=== PATIENT | female | born 1970 | race Caucasian/White ===

== ENCOUNTER → 2023-11-09 12:44 | Outpatient (REF) | payer OTHER, SELFPAY ==
[2023-11-09 14:28] LABS: Urine Albumin Negative (Neg - Trace); Urine Bilirubin Negative (Negative); Urine Character Clear (Clear); Urine Color Yellow; Urine Glucose Negative (Negative); Urine Ketone Negative (Negative); Urine Leukocyte 2+ (Negative); Urine Nitrite Negative (Negative); Urine Occult Blood Trace (Negative); Urine Urobilinogen Negative (Neg - 1+)
[2023-11-09 14:42] LABS: Urine Squamous Cell >30 /LPF (Few)
[2023-11-09 14:43] LABS: Urine Bacteria Few (Negative); Urine Red Blood Cell 0-2 /HPF (0-2); Urine White Cell 0-2 /HPF (0-5)
== END ==
LOC: CLAB 12:44
PROVIDERS: ATTENDING PHYSICIAN Urology
DX: N39.0 Urinary tract infection, site not specified (principal)
CPT/HCPCS: 81003; 81015; 87077; 87086; 87147